=== PATIENT | female | born 1950 | race Caucasian/White ===

== ENCOUNTER → 2017-11-28 12:42 | Outpatient (CLI) | payer MEDICARE, OTHER, SELFPAY ==
--- NOTE | 2017-11-28 | DI.CT.S_ITS ---
PROCEDURE: CT ABDOMEN PELVIS WO CON INDICATIONS: CHRONIC CONSTIPATION/ABDOMINAL CRAMPS TECHNIQUE: After the administration of oral contrast, 5 mm thick sections acquired from the diaphragms to the symphysis. 5 mm coronal and sagittal reformats were performed. For radiation dose reduction, the following was used: automated exposure control, adjustment of mA and/or kV according to patient size. COMPARISON: None. FINDINGS: Image quality: Excellent. ABDOMEN: Lung bases: Lung bases are clear. Heart size is normal. Status post right mastectomy Solid organs: Liver is normal in size. Gallbladder partially contracted otherwise unremarkable. Pancreas is normal in size. Spleen is normal in size. No adrenal nodules. Both kidneys are normal in size, without hydronephrosis or nephrolithiasis. Peritoneum and bowel: Bowel loops demonstrate normal wall thickness and caliber. No free fluid or air. Appendix appears normal. Large amount of retained stool seen in the colon Nodes and vessels: No retroperitoneal or mesenteric adenopathy by size criteria. Aorta and inferior vena cava are normal in size. Miscellaneous: No ventral hernias. PELVIS: Genitourinary: Bladder wall thickness is normal. Miscellaneous: No inguinal hernias or adenopathy. Bones: No suspicious bony lesions. No vertebral body compression fractures. IMPRESSION: Overall, no acute abnormality. Large amount of retained stool in the colon, in keeping with constipation. No evidence of bowel obstruction. Dictated by: Houston Hernández M.D. on 11/28/2017 at 14:24 Approved by: Houston Hernández M.D. on 11/28/2017 at 14:45
== END ==
PROVIDERS: Family Provider Family Medicine; PCP Family Medicine; Visit Provider Family Medicine
DX: K59.09 Other constipation (principal); R10.9 Unspecified abdominal pain
CPT/HCPCS: 74176

== ENCOUNTER → 2019-02-11 12:15 | Outpatient (CLI) | payer MEDICARE, OTHER, SELFPAY ==
--- NOTE | 2019-02-11 | DI.MG.S_ITS ---
UNILATERAL LEFT DIGITAL SCREENING MAMMOGRAM 3D/2D WITH CAD POST MASTECTOMY: 02/11/2019 CLINICAL: Routine screening. Personal history of right breast cancer. Comparison is made to exams dated: 10/21/2017 mammogram, 07/06/2015 mammogram, and 11/02/2013 mammogram - [facility]. There are scattered fibroglandular elements in left breast. Current study was also evaluated with a Computer Aided Detection (CAD) system. No significant masses, calcifications, or other findings are seen in the breast. There has been no significant interval change. IMPRESSION: NEGATIVE There is no mammographic evidence of malignancy. A 1 year screening mammogram is recommended. This exam was interpreted at Station ID: [id number]. NOTE: For mammograms, a report in lay terms will be sent to the patient. Approximately 15% of breast malignancies will not be visualized mammographically. In the management of a palpable breast mass, a negative mammogram must not discourage biopsy of a clinically suspicious lesion. Electronically Signed By: Kane swanson/alayna:02/13/2019 07:12:17 letter sent: Normal Exam ACR BI-RADS Category 1: Negative [id number]
== END ==
PROVIDERS: PCP Family Medicine; Visit Provider Family Medicine
DX: Z12.31 Encounter for screening mammogram for malignant neoplasm of breast (principal); Z85.3 Personal history of malignant neoplasm of breast
CPT/HCPCS: 77063; 77067

== ENCOUNTER → 2020-10-05 14:08 | Outpatient (CLI) | payer MEDICARE, OTHER, SELFPAY ==
--- NOTE | 2020-10-05 14:12 | DI.US.S_ITS ---
PROCEDURE: US ABDOMEN COMPLETE INDICATIONS: COAGULATION DEFECT TECHNIQUE: Real-time scanning was performed of the abdominal and retroperitoneal organs, with image documentation. COMPARISON: [facility], CT, CT ABDOMEN PELVIS WO CON, 11/28/2017, 13:48. FINDINGS: Liver: Liver is normal in size and homogeneous in echotexture. Gallbladder: The gallbladder appears normal without gallstones or gallbladder wall thickening. There is no pericholecystic fluid. Sonographic Mensah sign is negative. Biliary ducts: Intrahepatic bile ducts are non-dilated. Extrahepatic bile duct caliber measures three mm. Normal is 6-7 mm or less in diameter, or 10 mm or less post-cholecystectomy. Pancreas: Visualized portions of the pancreas are sonographically normal. Spleen: Spleen is normal in size and homogeneous in echotexture. Kidneys: Kidneys are normal in size and echotexture. Right kidney measures 10.5 cm long; left kidney measures 10.9 cm long. No hydronephrosis or nephrolithiasis. No solid masses. Aorta: Visualized aorta is normal in caliber at less than 3 cm. Iliacs: Proximal common iliac arteries are normal in caliber at less than 2.5 cm. IVC: Intrahepatic inferior vena cava is patent. Miscellaneous: No free abdominal fluid. IMPRESSION: No significant sonographic abnormality in the abdomen. Dictated by: Elmer Ramos M.D. on 10/05/2020 at 16:07 Approved by: Elmer Ramos M.D. on 10/05/2020 at 16:09
== END ==
PROVIDERS: PCP Family Medicine; Referring Provider Specialist; Visit Provider Specialist
DX: D68.9 Coagulation defect, unspecified (principal)
CPT/HCPCS: 76700

== ENCOUNTER → 2021-03-07 12:43 | Outpatient (CLI) | payer MEDICARE, OTHER, SELFPAY ==
[2021-03-07 14:17] LABS: Estimated Glomerular Filt Rate > 60.0 mL/min (>60)
--- NOTE | 2021-03-07 14:22 | DI.CT.S_ITS ---
PROCEDURE: CT ABDOMEN W CON INDICATIONS: Disease of stomach and duodenum, unspecified TECHNIQUE: After the administration of intravenous contrast, axial sections acquired from the diaphragm to the iliac crests during the late arterial and portal venous phases. Coronal and sagittal reformats were performed. For radiation dose reduction, the following was used: automated exposure control, adjustment of mA and/or kV according to patient size. COMPARISON: [facility], CT, CT ABDOMEN PELVIS WO [facility], 11/28/2017, 13:48. FINDINGS: Image quality: Excellent. Lung bases: Lung bases are clear. There is a partially visualized right breast implant. Heart: Heart is normal in size. There are AICD leads extending into the right atrium, right ventricle, and coronary sinus. Pancreas: The pancreas is normal in contour without a discrete mass or pancreatic duct dilatation. No peripancreatic fat stranding or fluid collections. Liver: There is focal fatty infiltration in the anterior left hepatic lobe. Gallbladder: Unremarkable. Biliary ducts: Unremarkable. Spleen: Unremarkable. Adrenal Glands: Unremarkable. Kidneys and Ureters: Unremarkable. Stomach and Bowel: Visualized bowel loops appear normal in caliber and wall thickness. Peritoneum: No abnormal intraperitoneal fluid. No free air. Ventral Wall: No hernia. Abdominal Nodes: No retroperitoneal or mesenteric adenopathy by size criteria. Vessels: Aorta and inferior vena cava are normal in size. Bones: Unremarkable. IMPRESSION: 1. No discrete pancreatic mass or CT evidence of pancreatitis. 2. No acute intra-abdominal abnormality. Dictated by: Kane Hurtado M.D. on 03/07/2021 at 18:11 Approved by: Kane Hurtado M.D. on 03/07/2021 at 18:18
== END ==
PROVIDERS: PCP Family Medicine; Referring Provider Specialist; Visit Provider Specialist
DX: K31.9 Disease of stomach and duodenum, unspecified (principal); R63.4 Abnormal weight loss; Z01.812 Encounter for preprocedural laboratory examination; K76.0 Fatty (change of) liver, not elsewhere classified; Z95.810 Presence of automatic (implantable) cardiac defibrillator
CPT/HCPCS: 36415; 74160; 82565

== ENCOUNTER → 2022-12-07 15:10 | Outpatient (CLI) | payer MEDICARE, OTHER, SELFPAY ==
--- NOTE | 2022-12-07 15:35 | DI.ECHO.S_ITS ---
[facility] +---------+ : : [address] : [address] : : : : [id number] : : : : Phone: [phone]+ Echocardiogram Report + + :Name: NIDA IDAZ Study Date: 12/07/2022 Height: 64 in : :[facility] ReadingLocation: Weight: 111 lb : : Gender: Female BSA: 1.5 m2 : :: 1950 Age: 72 yrs BP: 134/84 mmHg: :Reason For Study: cardiomyopathy : : Performed By: Cassidy Sena : :Referring: JONAH AMARAL W : + + Interpretation Summary The left ventricle is grossly normal size. LVEF about 50 to 55%. Previously 45 to 50%. The right ventricle is grossly normal size. The right ventricular systolic function is normal. There is a pacemaker lead in the right ventricle. There is mild to moderate tricuspid regurgitation. No significant change in TR. The right ventricular systolic pressure is estimated to be at least 23 mmHg based on an estimated right atrial pressure of 3 mm Hg. There is mild luminal irregularity and echogenicity in the abdominal aorta, suggestive of aortic atherosclerotic disease. Mild atherosclerotic plaque(s) in the aortic arch. Procedure: A two-dimensional transthoracic echocardiogram with color flow and Doppler was performed. The study quality was technically difficult. A contrast injection of Definity was performed to improve assessment of LV function. Comparison is made with the echocardiogram of 04/22/2018 at [facility]. The patient was in normal sinus rhythm during the exam. Left Ventricle: The left ventricle is grossly normal size. There is normal left ventricular wall thickness. There is no thrombus. There is no ventricular septal defect visualized. The ejection fraction is estimated to be 50-55%. There are no focal wall motion abnormalities. Diastolic function could not be accurately assessed due to paced rhythm. Right Ventricle: The right ventricle is grossly normal size. There is a pacemaker lead in the right ventricle. The right ventricular systolic function is normal. Atria: Both atria are normal in size. There is a catheter/pacemaker lead seen in the right atrium. There is no Doppler evidence for an interatrial shunt. Mitral Valve: The mitral valve leaflets appear borderline thickened, but open well. There is mild mitral annular calcification. There is no mitral valve stenosis. There is mild mitral regurgitation. The mitral regurgitant jet is eccentrically directed. Aortic Valve: The aortic valve is trileaflet. There is mild aortic valve sclerosis. The aortic valve is mildly calcified. There is no aortic valve stenosis. No aortic regurgitation is present. Tricuspid Valve: The tricuspid valve is not well visualized, but is grossly normal. There is mild to moderate tricuspid regurgitation. The right ventricular systolic pressure is estimated to be at least 23 mmHg based on an estimated right atrial pressure of 3 mm Hg. Pulmonic Valve: The pulmonic valve is not well visualized. There is no pulmonic valvular regurgitation. There is no significant valvular heart disease. Great Vessels: The aortic root is normal size. The ascending aorta could not be visualized. The aortic arch could not be visualized. There is mild luminal irregularity and echogenicity in the abdominal aorta, suggestive of aortic atherosclerotic disease. Mild atherosclerotic plaque(s) in the aortic arch. The IVC is of normal diameter and collapses greater than 50% with a sniff. This suggests a low right atrial pressure of 3 mm Hg. Pericardium/ Pleura There is no pericardial effusion. There is an anterior echo-free space consistent with a fat pad. There is no pleural effusion. MMode/2D Measurements & Calculations LVIDd: 3.5 cm LVOT diam: 1.9 cm LVIDs: 2.8 cm Ao root diam: 2.6 cm FS: 19.8 % EPSS: 0.58 cm IVSd: 0.76 cm LVPWd: 0.74 cm LV west. diameter/BSA (cm/m^2): 2.3 LV sys. diameter/BSA (cm/m^2): 1.8 LA A2 area: 14.8 cm2 RA long axis: 4.2 cm LA A4 area: 16.5 cm2 RA area: 12.5 cm2 LA length (vol): 4.9 cm RA vol: 31.3 ml LA vol: 42.3 ml RA : 20.6 ml/m2 LA vol index: 27.7 ml/m2 IVC diam: 1.5 cm TAPSE: 1.6 cm Doppler Measurements & Calculations Ao V2 max: 134.8 cm/sec LVOT Max Deejay: 80.3 cm/sec Ao V2 mean: 103.1 cm/sec LV V1 max P.6 mmHg Ao max P.3 mmHg LV V1 VTI: 16.2 cm Ao mean P.5 mmHg MARKO(I,D): 1.8 cm2 Ao V2 VTI: 25.3 cm MARKO(V,D): 1.7 cm2 sev ratio: 0.64 MARKO indexed to BSA (cm^2/m^2): 1.2 MV E max deejay: 76.2 cm/sec TR max deejay: 226.3 cm/sec MV A max deejay: 94.0 cm/sec TR max P.5 mmHg MV E/A: 0.81 Med Peak E' Deejay: 4.5 cm/sec E/E' med: 17.0 Lat Peak E' Deejay: 9.5 cm/sec E/E' lat: 8.0 E/e' average: 12.5 MV dec time: 0.16 sec SV(LVOT): 46.0 ml Reading Physician:03:04 PM
== END ==
PROVIDERS: PCP Family Medicine; Referring Provider Nurse Practitioner; Visit Provider Nurse Practitioner
DX: I42.8 Other cardiomyopathies (principal); I08.1 Rheumatic disorders of both mitral and tricuspid valves; I70.0 Atherosclerosis of aorta
CPT/HCPCS: 93306; Q9957